=== PATIENT | male | born 1990 | race American Indian/Alaskan Native ===

== ENCOUNTER 2016-04-11 17:46 | Emergency (ER) | payer SELFPAY ==
[2016-04-11 17:55] VITALS: BP 124/79
--- NOTE | 2016-04-11 20:03 | Emergency Department Report ---
Chief Complaint: Urogenital-Male Stated Complaint: POSS UTI Time Seen by Provider: 04/11/16 19:54 - HPI History of Present Illness: 25-year-old male presents today with yellow penile discharge 2 days. Positive for minimal dysuria. Patient states that he had unprotected sex one week ago and is not sure if that is associated. Denies history of STDs. Positive for history of similar symptoms. Denies increased urinary frequency or urgency. Denies fever, chills, nausea, vomiting, chest pain, shortness of breath, abdominal pain. - ROS Review of Systems: Constitutional: Denies chills, fever, diaphoresis, malaise, weakness Eyes: Denies eye pain ENT: Denies ear pain, throat pain, congestion Respiratory: Denies cough, shortness of breath, wheezing Cardiovascular: Denies chest pain, palpitations Endocrine: No symptoms reported GI: Denies abdominal pain, nausea, vomiting, diarrhea Musculoskeletal: Denies back pain, joint swelling, arthralgia, myalgia Skin: Denies rash, lesions, pruritus Neurological: Denies headache, weakness, numbness, paresthesias - Exam Vital Signs: Vital Signs 04/11/16 17:51 Temperature 98.7 F Pulse Rate 68 Respiratory 16 Rate Blood Pressure 124/79 O2 Sat by Pulse 100 Oximetry Physical Exam: GENERAL: The patient is well-developed and well-nourished. Patient is in NAD. HEAD: Normocephalic. Atraumatic. CHEST/LUNGS: Clear to auscultation throughout. HEART/CARDIOVASCULAR: Regular rate and rhythm. No murmurs, rubs or gallops. ABDOMEN: Abdomen is soft, nontender. Bowel sounds normoactive. No guarding or rebound tenderness. There is CVA tenderness bilaterally. EXTREMITIES: Peripheral pulses intact. Capillary refill less than 2 seconds. NEURO: Alert and oriented x 3. Normal gait. MSE screening note: Focused history and physical exam performed. Due to findings the following was ordered: ED Disposition for MSE Disposition: MEDICAL SCREENING EXAM-LEFT Condition: Stable Referrals: PRIMARY CARE, [Primary Care Provider] - 3-5 Days
== END 2016-04-11 20:30 | disposition left against medical advice (07) ==
LOC: ED 17:46
DX: R36.9 Urethral discharge, unspecified (principal); R30.0 Dysuria; Z53.21 Procedure and treatment not carried out due to patient leaving prior to being seen by health care provider

== ENCOUNTER 2017-04-17 18:07 | Emergency (ER) | payer SELFPAY ==
[2017-04-17 18:13] VITALS: BP 124/67
[2017-04-17] MEDS ORDERED: IMODIUM PO ONE (22:06)
--- NOTE | 2017-04-17 22:08 | Emergency Department Report ---
ED N/V/D HPI - General Chief complaint: Abdominal Pain Stated complaint: ABDOMINAL PAIN Time Seen by Provider: 04/17/17 22:03 Source: patient Mode of arrival: Ambulatory Limitations: No Limitations - History of Present Illness Initial comments: 26 -[place] male comes in for complaint of diarrhea for one week. Patient reports that he's had watery diarrhea about 2-3 stools a day for the past week. Patient denies any nausea no vomiting no fever no chills. He has had no recent travels in the last 30 days. He does report he eats mostly carryout food and that last week he had either [employer] and immediately didn't taste too well. Patient reports he only eats 1 mg daily for 11 hours shift. Does not eat breakfast. His tried to take his vitamins but he makes nauseated. Patient reports that he is a smoker, he is drinking well on the day he is eating well and on the day he denies any past medical history currently takes no medication he has no known drug allergies he has no dysuria. He reports that the stool is settling to the bottom of the toilet. MD complaint: diarrhea - Related Data Home Medications Medication Instructions Recorded Confirmed Last Taken No Known Home Medications [No 04/11/16 04/11/16 Unknown Reported Home Medications] Allergies Allergy/AdvReac Type Severity Reaction Status Date / Time No Known Allergies Allergy Verified 04/17/17 18:09 ED Review of Systems ROS: Stated complaint: ABDOMINAL PAIN Other details as noted in HPI Constitutional: denies: chills, fever Eyes: denies: eye pain, eye discharge, vision change ENT: denies: ear pain, throat pain Respiratory: denies: cough, shortness of breath, wheezing Cardiovascular: denies: chest pain, palpitations Endocrine: no symptoms reported Gastrointestinal: diarrhea. denies: abdominal pain, nausea Genitourinary: denies: urgency, dysuria Musculoskeletal: denies: back pain, joint swelling, arthralgia Skin: denies: rash, lesions Neurological: denies: headache, weakness, paresthesias Psychiatric: denies: anxiety, depression Hematological/Lymphatic: denies: easy bleeding, easy bruising ED Past Medical Hx - Social History Smoking Status: Current Some Day Smoker Substance Use Type: None - Medications Home Medications: Home Medications Medication Instructions Recorded Confirmed Last Taken Type No Known Home Medications [No 04/11/16 04/11/16 Unknown History Reported Home Medications] ED Physical Exam - General Limitations: No Limitations General appearance: alert, in no apparent distress - Head Head exam: Present: atraumatic, normocephalic - Eye Eye exam: Present: normal appearance - ENT ENT exam: Present: mucous membranes moist - Neck Neck exam: Present: normal inspection - Respiratory Respiratory exam: Present: normal lung sounds bilaterally. Absent: respiratory distress - Cardiovascular Cardiovascular Exam: Present: regular rate, normal rhythm. Absent: systolic murmur, diastolic murmur, rubs, gallop - GI/Abdominal GI/Abdominal exam: Present: soft, normal bowel sounds - Rectal Rectal exam: Present: deferred - Extremities Exam Extremities exam: Present: normal inspection - Back Exam Back exam: Present: normal inspection - Neurological Exam Neurological exam: Present: alert, oriented X3 - Psychiatric Psychiatric exam: Present: normal affect, normal mood - Skin Skin exam: Present: warm, dry, intact, normal color. Absent: rash ED Course Vital Signs 04/17/17 18:09 Temperature 98.5 F Pulse Rate 77 Respiratory 18 Rate Blood Pressure 124/67 O2 Sat by Pulse 96 Oximetry ED Medical Decision Making - Medical Decision Making Patient has been evaluated by this provider fast track. I reviewed patient's vital signs which were stable heart rate 77 pressure 124/67 afebrile. I discussed the patient is drinking and eating well. I discussed with him that he needs to lay off the fast foods and cooperate more healthier diet choices. I discussed with him he needs to eat high fiber diet. Patient verbalized understanding. Critical care attestation.: If time is entered above; I have spent that time in minutes in the direct care of this critically ill patient, excluding procedure time. ED Disposition Clinical Impression: Diarrhea in adult patient Disposition: DC-01 TO HOME OR SELFCARE Is pt being admited?: No Does the pt Need Aspirin: No Condition: Stable Instructions: Loperamide (By mouth), Acute Diarrhea (ED) Additional Instructions: Please try to eat more healthier diet. Please lay off the fast foods. Please increase her fiber intake. Follow-up to primary care provider if diarrhea persists or gets worse. Referrals: PRIMARY CARE, [Primary Care Provider] - 3-5 Days LILI HOWARD MD [Staff Physician] - 3-5 Days Forms: Work/School Release Form(ED)
== END 2017-04-17 22:19 | disposition home or self-care (01) ==
LOC: ED 18:07
DX: R19.7 Diarrhea, unspecified (principal); F17.200 Nicotine dependence, unspecified, uncomplicated
CPT/HCPCS: 99282

== ENCOUNTER 2017-05-10 11:59 | Emergency (ER) | payer OTHER ==
[2017-05-10 12:32] VITALS: BP 126/64
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
== END 2017-05-10 14:29 | disposition home or self-care (01) ==
LOC: ED 11:59
DX: M54.5 Low back pain (principal); M79.621 Pain in right upper arm; F17.200 Nicotine dependence, unspecified, uncomplicated; V49.59XA Passenger injured in collision with other motor vehicles in traffic accident, initial encounter; Y93.89 Activity, other specified; Y99.8 Other external cause status; Y92.410 Unspecified street and highway as the place of occurrence of the external cause
CPT/HCPCS: 99282

== ENCOUNTER 2017-06-07 16:13 | Emergency (ER) | payer SELFPAY ==
[2017-06-07 16:30] VITALS: BP 123/74
[2017-06-07] MEDS ORDERED: ROCEPHIN IM ONE (18:03)
[2017-06-07] MEDS ORDERED: ZITHROMAX PO ONE (18:04)
--- NOTE | 2017-06-07 18:07 | Emergency Department Report ---
ED Male HPI - General Chief complaint: Urogenital-Male Stated complaint: STD Time Seen by Provider: 06/07/17 18:03 Source: patient Mode of arrival: Ambulatory Limitations: No Limitations - History of Present Illness Initial comments: Pt reports discharge/burning w/ urination x 1 day. Thinks he got exposed to an STD MD Complaint: penile discharge, dysuria -: Gradual, days(s) (1) Location: penis Radiation: none Severity: mild Consistency: constant Improves with: none Worsens with: none new sexual partner discharge. denies: swelling, rash, fever, nausea/vomiting - Related Data Previous Rx's Medication Instructions Recorded Last Taken Type Ciprofloxacin HCl [Cipro] 500 mg PO BID #14 tablet 06/07/17 Unknown Rx Allergies Allergy/AdvReac Type Severity Reaction Status Date / Time No Known Allergies Allergy Verified 04/17/17 18:09 ED Review of Systems ROS: Stated complaint: STD Other details as noted in HPI Comment: All other systems reviewed and negative Constitutional: denies: chills, fever Eyes: denies: eye pain, eye discharge, vision change ENT: denies: ear pain, throat pain Respiratory: denies: cough, shortness of breath, wheezing Cardiovascular: denies: chest pain, palpitations Endocrine: no symptoms reported Gastrointestinal: denies: abdominal pain, nausea, diarrhea Genitourinary: dysuria, discharge. denies: urgency, testicular pain Musculoskeletal: denies: back pain, joint swelling, arthralgia Skin: denies: rash, lesions Neurological: denies: headache, weakness, paresthesias Psychiatric: denies: anxiety, depression Hematological/Lymphatic: denies: easy bleeding, easy bruising ED Past Medical Hx - Past Medical History Previous Medical History?: No - Surgical History Past Surgical History?: No - Social History Smoking Status: Current Some Day Smoker Substance Use Type: None - Medications Home Medications: Home Medications Medication Instructions Recorded Confirmed Last Taken Type Ciprofloxacin HCl [Cipro] 500 mg PO BID #14 tablet 06/07/17 Unknown Rx ED Physical Exam - General Limitations: No Limitations General appearance: alert, in no apparent distress - Head Head exam: Present: atraumatic, normocephalic - Eye Eye exam: Present: normal appearance - ENT ENT exam: Present: mucous membranes moist - Neck Neck exam: Present: normal inspection - Respiratory Respiratory exam: Present: normal lung sounds bilaterally. Absent: respiratory distress - Cardiovascular Cardiovascular Exam: Present: regular rate, normal rhythm. Absent: systolic murmur, diastolic murmur, rubs, gallop - GI/Abdominal GI/Abdominal exam: Present: soft, normal bowel sounds. Absent: tenderness, guarding, rebound - Rectal Rectal exam: Present: deferred - Extremities Exam Extremities exam: Present: normal inspection - Back Exam Back exam: Present: normal inspection - Neurological Exam Neurological exam: Present: alert, oriented X3 - Psychiatric Psychiatric exam: Present: normal affect, normal mood - Skin Skin exam: Present: warm, dry, intact, normal color. Absent: rash ED Course Vital Signs 06/07/17 16:27 Temperature 98 F Pulse Rate 72 Respiratory 16 Rate Blood Pressure 123/74 O2 Sat by Pulse 99 Oximetry - Reevaluation(s) Reevaluation #1: 06/07/17 18:05 Stable for d/c. ED Medical Decision Making - Medical Decision Making Will send UA/GC/chlamydia. Treated empirically. - Differential Diagnosis sti, uti Critical care attestation.: If time is entered above; I have spent that time in minutes in the direct care of this critically ill patient, excluding procedure time. ED Disposition Clinical Impression: Urethritis Disposition: DC-01 TO HOME OR SELFCARE Is pt being admited?: No Condition: Good Instructions: Nonspecific Urethritis in Men (ED) Prescriptions: Ciprofloxacin HCl [Cipro] 500 mg PO BID #14 tablet Referrals: THEODORE BREWSTER MD [Primary Care Provider] - 3-5 Days Forms: STI Treatment and Prevention Time of Disposition: 18:07
== END 2017-06-07 18:18 | disposition home or self-care (01) ==
LOC: ED 16:13
DX: N34.2 Other urethritis (principal); F17.200 Nicotine dependence, unspecified, uncomplicated
CPT/HCPCS: 96372; 99282; J0696

== ENCOUNTER 2018-03-17 11:32 | Emergency (ER) | payer OTHER ==
[2018-03-17 11:38] VITALS: BP 124/59
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
== END 2018-03-17 12:28 | disposition home or self-care (01) ==
LOC: ED 11:32
DX: B00.1 Herpesviral vesicular dermatitis (principal); F17.200 Nicotine dependence, unspecified, uncomplicated
CPT/HCPCS: 99282